=== PATIENT | female | born 1995 | race Caucasian/White ===

== ENCOUNTER 2021-08-09 10:31 | Day surgery (SDC) | payer OTHER | END 2021-08-09 17:50 | disposition home or self-care (01) | LOC: CIR.AMB 10:31 | PROVIDERS: ATTEND Obstetrics & Gynecology | DX: T83.32XD Displacement of intrauterine contraceptive device, subsequent encounter (principal); Z20.822 Contact with and (suspected) exposure to COVID-19 ==